=== PATIENT | female | born 1970 | race Caucasian/White ===

== ENCOUNTER 2023-05-13 08:29 | Emergency (ER) | payer OTHER ==
[~2023-05-13] VITALS: Ht 167.6 cm; Wt 63.6 kg
[~2023-05-13 08:29] MED LIST: NO MEDS
[2023-05-13 08:34] VITALS: TEMP 97.5
[2023-05-13] MEDS ORDERED: HYDROCODONE/ACETAMINOPHEN 5-325 MG TABLET PO ONE (09:00)
[2023-05-13] MEDS ORDERED: TRAM-559 PO (09:45)
[2023-05-13] MEDS ORDERED: KETOROLAC TROMETHAMINE 30 MG/ML VIAL IM ONE (10:15)
[2023-05-13 10:43] VITALS: BP 122/76; PULSE 50; RESP 15
== END 2023-05-13 10:53 | disposition home or self-care (01) ==
LOC: EMS 08:36
DX: S30.0XXA Contusion of lower back and pelvis, initial encounter (principal); F12.90 Cannabis use, unspecified, uncomplicated; Z98.890 Other specified postprocedural states; W19.XXXA Unspecified fall, initial encounter; Y93.89 Activity, other specified; Y92.89 Other specified places as the place of occurrence of the external cause; Y99.8 Other external cause status
CPT/HCPCS: 99283; 72220; 96372; J1885

== ENCOUNTER 2024-04-13 22:07 | Emergency (ER) | payer OTHER ==
[~2024-04-13] VITALS: Ht 167.6 cm; Wt 66.0 kg
[~2024-04-13 22:07] MED LIST changes: -NO MEDS; +TRAM50TA5 PO
[2024-04-13 22:14] VITALS: BP 119/76; PULSE 77; RESP 20; TEMP 98.2
[2024-04-13] MEDS: CEPHALEXIN MONOHYDRATE 500 MG CAPSULE PO ONE (23:44)
[2024-04-13] MEDS: SULFAMETHOX/TRIMETH DS 800-160 MG/TABLET PO ONE (23:44)
[2024-04-13] MEDS: OxyCODONE HCL/ACETAMINOPHEN 5-325 MG TABLET PO ONE (23:44)
[2024-04-14] MEDS ORDERED: CEPH-558 PO (00:09)
[2024-04-14] MEDS ORDERED: SULF-261 PO (00:09)
[2024-04-14] MEDS ORDERED: TRAM50TA5 PO (00:10)
== END 2024-04-14 00:22 | disposition home or self-care (01) ==
LOC: EMS 22:10
DX: I89.1 Lymphangitis (principal); F12.90 Cannabis use, unspecified, uncomplicated; Z98.890 Other specified postprocedural states; Z88.8 Allergy status to other drugs, medicaments and biological substances
CPT/HCPCS: 99284; Z7502; Z7610